=== PATIENT | male | born 1995 | race Caucasian/White ===

== ENCOUNTER 2017-08-31 12:39 | Emergency (ER) | payer MEDICAID ==
[~2017-08-31] VITALS: Ht 170.2 cm; Wt 68.0 kg
[2017-08-31 12:44] VITALS: BP 129/79; PULSE 81; RESP 16; TEMP 97.9; O2SAT 97
[2017-08-31] MEDS ORDERED: CLIN300C5 PO (13:51)
--- NOTE | 2017-08-31 13:52 | PD ---
HPI Chief Complaint: Oral / Dental Pain or Problem Time Seen by Provider: 13:05 Travel History International Travel<30 days: No Contact w/Intl Traveler<30days: No Traveled to known affect area: No History of Present Illness HPI 22-year-old male here with right lower dental pain for several weeks. Denies fever chills. Reports aching/throbbing, nonradiating pain to the right lower jaw. Difficulty swallowing. Symptom severity is moderate. No aggravating or alleviating factors. PFSH Past Medical History Asthma: Yes (asthma as a child) Diminished Hearing: No Respiratory: Yes (asthma as a child) Immunizations Current: Yes Tetanus Vaccination: Unknown Influenza Vaccination: No Past Surgical History Genitourinary Surgery: Yes (left testicle removed) Other Surgery: Yes Social History Alcohol Use: No Tobacco Use: No Substance Use: No Allergies-Medications (Allergen,Severity, Reaction): Coded Allergies: No Known Allergies (Unverified Adverse Reaction, Unknown, 08/31/17) Reported Meds & Prescriptions Reported Meds & Active Scripts Active No Active Prescriptions or Reported Medications Review of Systems Except as stated in HPI: all other systems reviewed are Neg General / Constitutional: No: Fever Physical Exam Narrative GENERAL: SKIN: Warm and dry. HEAD: Normocephalic. EYES: No scleral icterus. No injection or drainage. MOUTH; widespread dental decay. Decayed and fractured right lower molar with surrounding gum erythema. No swelling of the floor the mouth. Uvula is midline. Airways patent. Normal phonation. NECK: Supple, trachea midline. No lymphadenopathy. CARDIOVASCULAR: Regular rate and rhythm without murmurs, gallops, or rubs. RESPIRATORY: Breath sounds equal bilaterally. No accessory muscle use. GASTROINTESTINAL: Abdomen soft, non-tender, nondistended. MUSCULOSKELETAL: No cyanosis, or edema. Data Data Last Documented VS Vital Signs Date Time Temp Pulse Resp B/P (MAP) Pulse Ox O2 Delivery O2 Flow Rate FiO2 08/31/17 12:44 97.9 81 16 129/79 (96) 97 MDM Medical Decision Making Medical Screen Exam Complete: Yes Emergency Medical Condition: Yes Differential Diagnosis Dental abscess, dental caries, periodontal disease Narrative Course 22-year-old male here with right lower dental swelling. Patient has dental abscess. Airways patent. No swelling of lower mouth. He will treated with clindamycin instructed to follow-up with dentist. Diagnosis Primary Impression: Dental abscess Referrals: Dentist Additional Instructions: Antibiotics as directed. Follow-up with dentist. Tylenol or ibuprofen as needed for pain. Scripts Clindamycin (Clindamycin) 300 Mg Cap 300 MG PO Q6H for Infection for 10 Days, #40 CAP 0 Refills Prov: Shanta Sheikh 08/31/17 Disposition: 01 DISCHARGE HOME Condition: Stable Shanta Sheikh Aug 31, 2017 13:52
== END 2017-08-31 14:01 | disposition home or self-care (01) ==
LOC: PHEFT 12:39
DX: K04.7 Periapical abscess without sinus (principal); J45.909 Unspecified asthma, uncomplicated
CPT/HCPCS: 99283